=== PATIENT | male | born 1960 | race Caucasian/White ===

== ENCOUNTER → 2018-01-12 | Outpatient (CLI) | payer OTHER ==
[2018-01-12 11:32] LABS: BASO % 0 % (0-3); EOS # 0.2 x10^3/uL (0.0-0.7); EOS % 3 % (0-3); HEMATOCRIT 45.2 % (39.0-53.0); HEMOGLOBIN 15.3 g/dL (13.0-17.5); LYMPH # 2.1 x10^3/uL (1.0-4.8); LYMPH % 29 % (24-48); MEAN CORPUSCULAR HEMOGLOBIN 30 pg (25-35); MEAN CORPUSCULAR HGB CONC 34 g/dL (31-37); MEAN CORPUSCULAR VOLUME 88 fL (79-100); MONO # 0.8 x10^3/uL (0.0-1.1); MONO % 11 % (0-9); NEUT # 4.1 x10^3uL (1.8-7.7); NEUT % 57 % (31-73); PLATELET COUNT 356 x10^3/uL (140-400); RED BLOOD COUNT 5.16 x10^6/uL (4.30-5.70); RED CELL DISTRIBUTION WIDTH 13.5 % (11.5-14.5); WHITE BLOOD COUNT 7.2 x10^3/uL (4.0-11.0)
[2018-01-12 11:52] LABS: ALBUMIN/GLOBULIN RATIO 1.2 (1.0-1.7); CREATININE 1.1 mg/dL (0.7-1.3); GFR 69.5; TOTAL BILIRUBIN 0.6 mg/dL (0.2-1.0); TOTAL PROTEIN 7.4 g/dL (6.4-8.2)
[2018-01-12 11:53] LABS: CHOLESTEROL/HDL RATIO 5.3
== END | disposition home or self-care (01) ==
LOC: LAB 11:04
DX: Z00.01 Encounter for general adult medical examination with abnormal findings (principal); E34.9 Endocrine disorder, unspecified
CPT/HCPCS: 80053; 80061; 84443; 85025

== ENCOUNTER → 2018-12-21 | Outpatient (CLI) | payer OTHER ==
[2018-12-21 10:44] LABS: BASO % 0 % (0-3); EOS # 0.2 x10^3/uL (0.0-0.7); EOS % 3 % (0-3); HEMATOCRIT 43.7 % (39.0-53.0); HEMOGLOBIN 14.9 g/dL (13.0-17.5); LYMPH # 1.7 x10^3/uL (1.0-4.8); LYMPH % 23 % (24-48); MEAN CORPUSCULAR HEMOGLOBIN 30 pg (25-35); MEAN CORPUSCULAR HGB CONC 34 g/dL (31-37); MEAN CORPUSCULAR VOLUME 87 fL (79-100); MONO # 0.7 x10^3/uL (0.0-1.1); MONO % 9 % (0-9); NEUT # 4.8 x10^3/uL (1.8-7.7); NEUT % 65 % (31-73); PLATELET COUNT 312 x10^3/uL (140-400); RED BLOOD COUNT 5.02 x10^6/uL (4.30-5.70); RED CELL DISTRIBUTION WIDTH 13.5 % (11.5-14.5); WHITE BLOOD COUNT 7.4 x10^3/uL (4.0-11.0)
[2018-12-21 10:57] LABS: ALBUMIN 3.6 g/dL (3.4-5.0); CALCIUM 8.7 mg/dL (8.5-10.1); CREATININE 1.2 mg/dL (0.7-1.3); GFR 62.6; POTASSIUM 3.8 mmol/L (3.5-5.1); TOTAL BILIRUBIN 0.8 mg/dL (0.2-1.0); TOTAL PROTEIN 7.2 g/dL (6.4-8.2)
[2018-12-21 11:08] LABS: CHOLESTEROL/HDL RATIO 4.1
[2018-12-22 00:07] LABS: HEMOGLOBIN A1C 5.6 % (4.8-5.6)
== END | disposition home or self-care (01) ==
LOC: LAB 10:11
PROVIDERS: ATTEND Nurse Practitioner Family
DX: Z13.1 Encounter for screening for diabetes mellitus (principal); I10 Essential (primary) hypertension; E78.5 Hyperlipidemia, unspecified
CPT/HCPCS: 36415; 80053; 80061; 83036; 84443; 85025

== ENCOUNTER → 2019-03-25 | Outpatient (CLI) | payer OTHER ==
[2019-03-25 09:04] LABS: CALCIUM 8.9 mg/dL (8.5-10.1); CREATININE 1.2 mg/dL (0.7-1.3); GFR 62.6; MAGNESIUM 1.9 mg/dL (1.8-2.4)
[2019-03-25 23:11] LABS: HEMOGLOBIN A1C 5.6 % (4.8-5.6)
== END | disposition home or self-care (01) ==
LOC: LAB 08:38
PROVIDERS: ATTEND Nurse Practitioner Family
DX: R73.01 Impaired fasting glucose (principal); R25.3 Fasciculation
CPT/HCPCS: 36415; 80048; 83036; 83735

== ENCOUNTER → 2019-05-09 | Outpatient (CLI) | payer OTHER ==
--- NOTE | 2019-05-09 16:38 | RAD ---
LUMBAR SPINE WO CONTRAST Date: 05/09/2019 2:45 PM Indication: Low back pain with right greater than left lower extremity radiculopathy Comparison: None. Technique: Multi-planar multi-weighted magnetic resonance imaging of the lumbar spine was performed without intravenous contrast using the standard lumbar spine protocol. FINDINGS: The lumbar spine is normally aligned. No acute fracture. Mild multilevel degenerative disc desiccation and disc height loss. Nonspecific heterogeneously T1 hypointense marrow signal, which can be seen with smoking, anemia, or obesity. The conus terminates at a normal level. No abnormal signal is seen within the visualized distal spinal cord. No clumping of intrathecal nerve roots. No soft tissue abnormality in the visualized abdomen or pelvis. T12-L1: No disc bulge. No facet arthropathy. No significant spinal stenosis or neural foraminal narrowing. L1-L2: Disc bulge. Mild facet arthropathy. No significant spinal stenosis or neural foraminal narrowing. L2-L3: Disc bulge. Mild facet arthropathy. No spinal stenosis. Mild right lateral recess narrowing. Mild to moderate right and mild left neural foraminal narrowing. L3-L4: Disc bulge. Mild facet arthropathy. Mild spinal stenosis and lateral recess narrowing. Moderate right and mild left neural foraminal narrowing. L4-L5: Disc bulge. Mild to moderate facet arthropathy. Mild to moderate spinal stenosis and lateral recess narrowing. Mild to moderate left and moderate right neural foraminal narrowing. L5-S1: Disc bulge. Mild facet arthropathy. No significant spinal stenosis or neural foraminal narrowing. IMPRESSION: Mild to moderate lumbar spondylosis, detailed level by level above. Electronically signed by: Andrea Nuñez MD (05/09/2019 4:35 PM) [facility]
== END | disposition home or self-care (01) ==
LOC: MRI 14:48
PROVIDERS: ATTEND Family Medicine
DX: M47.26 Other spondylosis with radiculopathy, lumbar region (principal); M51.16 Intervertebral disc disorders with radiculopathy, lumbar region; M12.88 Other specific arthropathies, not elsewhere classified, other specified site; M48.061 Spinal stenosis, lumbar region without neurogenic claudication; M51.27 Other intervertebral disc displacement, lumbosacral region
CPT/HCPCS: 72148

== ENCOUNTER → 2019-08-18 | Outpatient (CLI) | payer OTHER ==
[2019-08-18 13:10] LABS: BASO % 1 % (0-3); EOS # 0.1 x10^3/uL (0.0-0.7); EOS % 2 % (0-3); HEMATOCRIT 47.4 % (39.0-53.0); HEMOGLOBIN 15.9 g/dL (13.0-17.5); LYMPH % 27 % (24-48); MEAN CORPUSCULAR HEMOGLOBIN 28 pg (25-35); MEAN CORPUSCULAR HGB CONC 34 g/dL (31-37); MEAN CORPUSCULAR VOLUME 84 fL (79-100); MONO # 0.7 x10^3/uL (0.0-1.1); MONO % 10 % (0-9); NEUT # 4.4 x10^3/uL (1.8-7.7); NEUT % 61 % (31-73); PLATELET COUNT 386 x10^3/uL (140-400); RED BLOOD COUNT 5.64 x10^6/uL (4.30-5.70); RED CELL DISTRIBUTION WIDTH 14.8 % (11.5-14.5); WHITE BLOOD COUNT 7.3 x10^3/uL (4.0-11.0)
[2019-08-18 13:38] LABS: ALBUMIN 4.1 g/dL (3.4-5.0); ALBUMIN/GLOBULIN RATIO 1.4 (1.0-1.7); CALCIUM 9.1 mg/dL (8.5-10.1); POTASSIUM 4.3 mmol/L (3.5-5.1); TOTAL BILIRUBIN 0.6 mg/dL (0.2-1.0); TOTAL PROTEIN 7.1 g/dL (6.4-8.2)
[2019-08-18 13:56] LABS: CHOLESTEROL/HDL RATIO 4.7
== END | disposition home or self-care (01) ==
LOC: LAB 12:41
PROVIDERS: ATTEND Nurse Practitioner Family
DX: Z12.5 Encounter for screening for malignant neoplasm of prostate (principal); Z12.11 Encounter for screening for malignant neoplasm of colon; I10 Essential (primary) hypertension; E78.2 Mixed hyperlipidemia; N40.0 Benign prostatic hyperplasia without lower urinary tract symptoms
CPT/HCPCS: 36415; 80053; 80061; 85025; G0103

== ENCOUNTER → 2020-04-17 | Outpatient (CLI) | payer OTHER ==
[~2020-04-17] MED LIST: ALBU2.5V8 IH; ATEN25TA PO; BUPR150T15 PO; FENO134C PO; IOHEXOL 180 MG/ML 10 ML VIAL. ONE; LOSA1TAB25 PO; MULT-245 PO; TAMS0.4C97 PO; ZOLP10TA PO; methylPREDNISolone ACETATE 40 MG/ML VIAL. ONE; methylPREDNISolone ACETATE 80 MG/ML VIAL. ONE
--- NOTE | 2020-04-17 15:24 | PDOC1 ---
INITIAL PAIN CONSULT DATE OF SERVICE: DOS: DATE: 04/17/20 TIME: 15:16 CHIEF COMPLAINT: Chief Complaint: Low back and right greater than left lower extremity pain HISTORY OF PRESENT ILLNESS: [id number] male presents with history of pain low back right greater left lower extremity worse over the past 2 months are present for about a year or so. 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 Patient reports the pain is increasing with work activities later during the day and has been very active better in the morning better with sitting but is waking her from sleep about 2-3 times at night does affect his bowel bladder control but no incontinence affects his ability to walk fairly significantly, where he must sometimes look to see where his foot is to make sure he can feel it. Patient has tried chiropractic treatment which has been helpful but only limited to also try gabapentin daily aspirin helps more as does Motrin. Patient reports a disability rating 0-10 10 being the worst is a 9 with him home responsibilities recreation 10 with occupation 5 social activity 8 with sexual behavior and self-care and 10 with life support activity especially sleeping. Patient have MRI scan which is dated May 2019 showing multilevel degenerative disc bulges with facet arthropathy L3-4 L4-5 and L5-S1 no significant L4-5 with mild to moderate spinal stenosis and lateral recess narrowing mild to moderate left and moderate right neuroforaminal narrowing moderate right and mild left neuroforaminal narrowing at L3-4 as well. Patient ports no loss of motor function but significant fatigability with activity. PAST MEDICAL HISTORY: PMH: Hearing loss, hypertension PREVIOUS SURGERIES: Past Surgical Hx: No previous surgeries CURRENT MEDICATIONS: Current Meds: Active Scripts Medications Dose Route/Sig Max Daily Dose Days Date Category Multi Vitamin Daily (Multivitamin) 1 Each Tablet 1 Tab PO DAILY 30 04/17/20 Reported Flomax (Tamsulosin Hcl) 0.4 Mg Cap.er.24h 1 Cap PO DAILY 04/17/20 Reported Losartan-Hctz 100-12.5 Mg Tab (Losartan/Hydrochlorothiazide) 1 Each Tablet 1 Tab PO DAILY 04/17/20 Reported Wellbutrin Xl (Bupropion Hcl) 150 Mg Tab.er.24h 1 Tab PO DAILY 04/17/20 Reported Proair Hfa (Albuterol Sulfate) 8.5 Gm Hfa.aer.ad 2 Puff IH PRN Q4-6HRS PRN 21 04/17/20 Reported Ambien (Zolpidem Tartrate) 10 Mg Tablet 10 Mg PO PRN QHS PRN 04/17/20 Reported Atenolol 25 Mg Tablet Unknown Dose PO DAILY 04/17/20 Reported Fenofibrate (Fenofibrate,Micronized) 134 Mg Capsule Unknown Dose PO DAILY 04/17/20 Reported ALLERGIES; Allergies: Coded Allergies: No Known Drug Allergies (Unverified , 04/17/20) FAMILY HISTORY: Family Hx: Coronary artery disease, hypertension SOCIAL HISTORY: Social Hx: Patient does not drink alcohol does not smoke not use any illegal illicit recreational drugs is lives with his spouse has no children living at home lives locally in [place], [place] and 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 Extraocular movements are intact and symmetrical. Oral cavity: Mucous membranes moist and pink. Dentition is intact. NECK: Shows anterior throat supple without palpable lymphadenopathy noted. Swallow reflex symmetrical. CHEST: Shows normal on inspection. Breath sounds are clear bilaterally, no rales rhonchi wheezes auscultated. HEART: Shows S1, S2 clear. No murmurs auscultated. ABDOMEN: Soft, nontender, nondistended. No palpable organomegaly is noted. No rebound or guarding demonstrated. BACK: Shows spine grossly in the midline. Normal-appearing cervical lordotic curvature. There is slightly increased thoracic kyphosis, some minor flattening of the lumbar lordotic curvature. Lumbar paraspinous muscles show symmetrical on inspection, on palpation shows some moderate tenderness diffusely throughout the upper, middle and lower distribution of the paraspinous muscles bilaterally and also into the lower thoracic paraspinous musculature, firm, but without specific trigger points, without radiation of pain. The patient has good rot ational motion of the lumbar spine, both laterally as well as extension and flexion without significant difficulty. No tenderness over the spinous processes, sacrum or sacroiliac regions. EXTREMITIES: Lower extremities show deep tendon reflexes 2+ in the patellar and tendo calcaneus tendons. Motor exam is 5 on a scale of 5 with right dorsiflexion, extension, quadriceps and hamstring flexion and 5/5 on the left. Peripheral pulses are 1+ posterior tibial. No peripheral edema is noted bilaterally. Lower extremities are warm and dry to touch, equal in color and appearance. Straight leg raise noted to be negative bilaterally. Gaenslen's and Chetan's maneuvers are noted bilaterally as well. The patient is able to stand, stand on his toes without significant difficulty or loss of balance walks with a normal-appearing gait is not appear to favor the right or left lower extremity significantly does not use any assistive devices to ambulate. SKIN: Shows warm and dry, good turgor. No edema. No sores, rashes or bruising throughout. IMPRESSION: Impression: 60-year-old male with long history of low back lower extremity pain worse over the last 2 months with right greater than left radicular pain MRI scan lumbar spine as noted Hypertension Options were discussed with the patient including conservative medical management physical therapies interventional techniques. He like to pursue interventional techniques. We discussed a lumbar epidural steroid injection using description as well as anatomical models to describe the procedure. Risks were discussed including but not limited to: Bleeding, infection, possibility of epidural hematoma and subsequent neurological compromise, dural puncture, headaches, spinal cord and/or nerve damage, side effects of steroid medication, and poor results regarding pain control. Patient understands wished to proceed. Patient will return to the clinic in approximate 2 weeks for follow-up was counseled as to return appointment activity level, and side effects to be aware of. Procedure is lumbar epidural steroid injection under local anesthetic using sterile prep and drape at the L4-5 level using C-arm fluoroscopic guidance in both AP and lateral views medications injected is 120 mg Depo-Medrol + 10 mL p reservative-free normal saline and 2 mL contrast- condition at discharge is stable patient tolerated procedure well had no complications. TARIQ TYLER MD Apr 17, 2020 15:23
== END | disposition home or self-care (01) ==
LOC: PNCL 13:15
PROVIDERS: ATTEND Anesthesiology
DX: M54.5 Low back pain (principal); M79.605 Pain in left leg; I10 Essential (primary) hypertension; Z79.899 Other long term (current) drug therapy; Z82.49 Family history of ischemic heart disease and other diseases of the circulatory system
CPT/HCPCS: 62323; J1030; J1040; Q9965

== ENCOUNTER → 2020-07-10 | Outpatient (CLI) | payer OTHER ==
[~2020-07-10] MED LIST changes: -IOHEXOL 180 MG/ML 10 ML VIAL. ONE
--- NOTE | 2020-07-10 10:07 | PDOC4 ---
PROCEDURE Procedure Patient was consented for lumbar epidural steroid injection. Risks were dis cussed including but not limited to: Bleeding, infection, possibility of epidural hematoma and subsequent neurological compromise, dural puncture, headaches, spinal cord and/or nerve damage, side effects of steroid medication, and poor results regarding pain control. Patient understands and wished to proceed. Procedure is lumbar epidural steroid injection under local anesthetic using sterile prep and drape at the L4-5 level using C-arm fluoroscopic guidance in both AP and lateral views medications injected is 120 mg Depo-Medrol + 10 mL preservative-free normal saline and 2 mL contrast- condition at discharge is stable patient tolerated procedure well had no complications. TARIQ TYLER MD Jul 10, 2020 10:07
--- NOTE | 2020-07-10 10:07 | PDOC ---
Progress Note - Pain Clinic Date of Service: DOS: DATE: 07/10/20 TIME: 10:04 Diagnosis: Dx: Lumbar radiculopathy with lumbar degenerative disc disease and lumbar spinal stenosis History or Present Illness: HPI: 60-year-old male returns follow-up status post lumbar epidural steroid traction x1. Last seen April 17, 2020. Patient did very well with about 100% improvement for the first 2 months patient reports pain is returning now over the past few weeks in the low back and bilateral lower extremities right greater than left. Patient reports some tingling and numbness in the right foot and leg as well with walking and standing for prolonged periods but prior to this was doing much better increase distance walking doing household activities work activities try with greater ease and comfort sleeping much better at night patient reports the pain still does not awaken her from sleep. Patient rates hi s pain a 7 on scale 10 is worst over the past week 7 on average for its least and is a 6 today patient reports no new motor or sensory deficits no new bowel or bladder incontinence or other complaints. Patient describes the pain as tingling in the leg aching and burning in the back some stabbing pain as well which began to become more noticeable but not back to baseline. Physical Exam: VS: Blood pressure is 126/80 pulse is 87 respirations 16 temperature is 98.5 F height is 5 feet 6 inches weight is 188 pounds PE: PHYSICAL EXAMINATION: GENERAL: The patient is awake, alert, oriented, appropriate, very pleasant demeanor HEENT: Shows normocephalic, atraumatic. Extraocular movements are intact and symmetrical. Oral cavity: Mucous membranes moist and pink. NECK: Shows anterior throat supple without palpable lymphadenopathy noted. Swallow reflex symmetrical. CHEST: Shows normal on inspection. Breath sounds are clear bilaterally. HEART: Shows S1, S2 clear. No murmurs auscultated. ABDOMEN: Soft, nontender, nondistended. No palpable organomegaly is noted. No rebound or guarding demonstrated. BACK: Shows spine grossly in the midline. Normal-appearing cervical lordotic curvature. There is slightly increased thoracic kyphosis, some minor flattening of the lumbar lordotic curvature. Lumbar paraspinous muscles show symmetrical on inspection, on palpation shows some moderate tenderness diffusely throughout the upper, middle and lower distribution of the paraspinous muscles without specific trigger points, without radiation of pain. The patient has good rotational motion of the lumbar spine, both laterally as well as extension and flexion without significant difficulty. EXTREMITIES: Lower extremities show deep tendon reflexes 2+ in the patellar and tendo calcaneus tendons. Motor exam is 5 on a scale of 5 with right dorsiflexion, extension, quadriceps and hamstring flexion and 5/5 on the left. Peripheral pulses are 1+ posterior tibial. No peripheral edema is noted bilaterally. Lower extremities are warm and dry to touch, equal in color and appearance. SKIN: Shows warm and dry, good turgor. No edema. No sores, rashes or bruising throughout. Procedure: Procedure: Options were discussed with the patient. Patient chart reviews his current medication regimen updated current review of systems updated today as well. We will proceed with a lumbar epidural steroid injection today with fluoroscopic guidance as a second in the series. Risks were discussed including but not limited to: Bleeding, infection, possibility of epidural hematoma and subsequent neurological compromise, dural puncture, headaches, spinal cord and/or nerve damage, side effects of steroid medication, and poor results regarding pain control. Patient understands and wished to proceed. Patient will return to clinic in approximate 2 weeks for follow-up or as necessary. Patient was counseled as return appointment activity level and side effects to be aware of. Medication Injected: Med Injected: Procedure is lumbar epidural steroid injection under local anesthetic using sterile prep and drape at the L4-5 level using C-arm fluoroscopic guidance in both AP and lateral views medications injected is 120 mg Depo-Medrol + 10 mL preservative-free normal saline and 2 mL contrast- condition at discharge is stable patient tolerated procedure well had no complications. Condition at Discharge: Condition at Discharge: Condition at discharge stable, patient alert procedure well and had no complications. TARIQ TYLER MD Jul 10, 2020 10:07
== END | disposition home or self-care (01) ==
LOC: PNCL 09:18
PROVIDERS: ATTEND Anesthesiology
DX: M51.16 Intervertebral disc disorders with radiculopathy, lumbar region (principal); M48.061 Spinal stenosis, lumbar region without neurogenic claudication; Z79.899 Other long term (current) drug therapy
CPT/HCPCS: 62323; J1030; J1040

== ENCOUNTER → 2020-10-24 | Outpatient (CLI) | payer OTHER ==
[~2020-10-24] MED LIST changes: -methylPREDNISolone ACETATE 40 MG/ML VIAL. ONE; -methylPREDNISolone ACETATE 80 MG/ML VIAL. ONE
[2020-10-24 10:32] LABS: BASO % 0 % (0-3); EOS # 0.2 x10^3/uL (0.0-0.7); EOS % 3 % (0-3); HEMATOCRIT 45.3 % (39.0-53.0); HEMOGLOBIN 15.4 g/dL (13.0-17.5); LYMPH # 1.9 x10^3/uL (1.0-4.8); LYMPH % 28 % (24-48); MEAN CORPUSCULAR HEMOGLOBIN 29 pg (25-35); MEAN CORPUSCULAR HGB CONC 34 g/dL (31-37); MEAN CORPUSCULAR VOLUME 86 fL (79-100); MONO # 0.7 x10^3/uL (0.0-1.1); MONO % 11 % (0-9); NEUT # 3.9 x10^3/uL (1.8-7.7); NEUT % 58 % (31-73); PLATELET COUNT 348 x10^3/uL (140-400); RED BLOOD COUNT 5.26 x10^6/uL (4.30-5.70); RED CELL DISTRIBUTION WIDTH 13.3 % (11.5-14.5); WHITE BLOOD COUNT 6.8 x10^3/uL (4.0-11.0)
[2020-10-24 12:41] LABS: CALCIUM 8.9 mg/dL (8.5-10.1); GFR 76.7; POTASSIUM 4.2 mmol/L (3.5-5.1)
== END ==
LOC: LAB 09:57
PROVIDERS: ATTEND Nurse Practitioner Family
DX: Z12.5 Encounter for screening for malignant neoplasm of prostate (principal); E78.2 Mixed hyperlipidemia
CPT/HCPCS: 80048; 80061; 84402; 84403; 84443; 85025; G0103

== ENCOUNTER → 2021-05-10 | Outpatient (CLI) | payer OTHER ==
[2021-05-16 11:14] LABS: TESTOSTERONE FREE 15.48 ng/dL (5.00-21.00)
== END ==
LOC: LAB 12:14
PROVIDERS: ATTEND Nurse Practitioner Family
DX: E34.9 Endocrine disorder, unspecified (principal)
CPT/HCPCS: 36415; 84402; 84403

== ENCOUNTER → 2021-06-24 | Outpatient (CLI) | payer OTHER ==
[~2021-06-24] MED LIST changes: +IOHEXOL 180 MG/ML 10 ML VIAL. ONE; +methylPREDNISolone ACETATE 80 MG/ML VIAL. ONE
--- NOTE | 2021-06-24 11:08 | PDOC ---
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 with increased pain in the back and the lower extremities right greater than left in the posterior gluteus lateral thigh anterior thigh medial thigh into the foot especially between the first and second toes on the right foot patient reports that he has some weakness in the right leg and feels unstable over the past month or 2 with his right leg since the pain is increased patient reports tingling and constant in the low back and the right leg aching and dull can be shooting and stabbing in the leg as well patient reports an 8 on scale 10 is worst 7 on average 5 its least is a 7 today patient reports no bowel or bladder incontinence better with sitting or laying down much worse with standing walking changing positions initially doing much better with all activities household activities work activities distance walking doing traveling with greater ease and sleeping much better he still sleeps fairly well. Patient reports no bowel or bladder incontinence no motor deficits has been taking Motrin sometimes up to 6-8 times a day as well as baby aspirin on top of this. We discussed his in detail and will prescribe new medication of meloxicam 15 mg once daily to substitute for the Motrin and aspirin. Patient was given instructions well side effects beware with the new medication. Physical Exam: VS: Blood pressure is 144/82 pulse 74 respirations 18 temperature 98.2 F height 5 feet 6 inches weight is 178 pounds. PE: PHYSICAL EXAMINATION: GENERAL: The patient is awake, alert, oriented, appropriate, very pleasant in demeanor HEENT: Shows normocephalic, atraumatic. Extraocular movements are intact and symmetrical. Oral cavity: Mucous membranes moist and pink. Dentition is intact. NECK: Shows anterior throat supple without palpable lymphadenopathy noted. Swallow reflex symmetrical. CHEST: Shows normal on inspection. Breath sounds are clear bilaterally, distant but no rales or rhonchi. HEART: Shows S1, S2 clear. No murmurs auscultated. ABDOMEN: Soft, nontender, nondistended. No palpable organomegaly is noted. BACK: Shows spine grossly in the midline. Normal-appearing cervical lordotic curvature. There is slightly increased thoracic kyphosis, some minor flattening of the lumbar lordotic curvature. Lumbar paraspinous muscles show symmetrical on inspection, on palpation shows some moderate tenderness diffusely throughout the upper, middle and lower distribution of the paraspinous muscles without specific trigger points, without radiation of pain. The patient has good rotational motion of the lumbar spine, both laterally as well as extension and flexion without significant difficulty. No tenderness over the spinous processes, sacrum or sacroiliac regions. EXTREMITIES: Lower extremities show deep tendon reflexes 2+ in the patellar and tendo calcaneus tendons. Motor exam is 4 on a scale of 5 with right dorsiflexion, extension, quadriceps and hamstring flexion and 5/5 on the left. Peripheral pulses are 1+ posterior tibial. No peripheral edema is noted bilaterally. Lower extremities are warm and dry to touch, equal in color and appearance. SKIN: Shows warm and dry, good turgor. No edema. No sores, rashes or bruising throughout. Procedure: Procedure: Options discussed with the patient. Patient's old chart was used his current medication regimen updated current review of systems updated today as well. We will proceed with a lumbar epidural steroid injection today with fluoroscopic guidance. Risks were discussed including but not limited to: Bleeding, infection, possibility of epidural hematoma and subsequent neurological compromise, dural puncture, headaches, spinal cord and/or nerve damage, side effects of steroid medication, and poor results regarding pain control. Patient understands and wished to proceed. Patient will return to the clinic in approximately 2 weeks for follow-up, was counseled as to return appointment, activity level, and side effect to be aware of. Medication Injected: Med Injected: Procedure is lumbar epidural steroid injection under local anesthetic using sterile prep and drape at the L4-5 level using C-arm fluoroscopic guidance in both AP and lateral views medications injected is 120 mg Depo-Medrol +10mL preservative-free normal saline and 2 mL contrast- condition at discharge is stable patient tolerated procedure well had no complications. Condition at Discharge: Condition at Discharge: Condition at discharge is stable, patient tolerated the procedure well and had no complications. TARIQ TYLER MD Jun 24, 2021 11:08
--- NOTE | 2021-06-24 11:09 | PDOC4 ---
Procedure Note: ICD 10 Code: ICD 10 Code: M54.16 M51.36 M4 8.06 Procedure Note: Patient was consented for lumbar epidural steroid injection with fluoroscopic guidance. Risks were discussed including but not limited to: Bleeding, infection, possibility of epidural hematoma and subsequent neurological compromise, dural puncture, headaches, spinal cord and/or nerve damage, side effects of steroid medication, and poor results regarding pain control. Patient understands and wished to proceed. Procedure is lumbar epidural steroid injection under local anesthetic using jamie rile prep and drape at the L4-5 level using C-arm fluoroscopic guidance in both AP and lateral views medications injected is 120 mg Depo-Medrol +10mL preservative-free normal saline and 2 mL contrast- condition at discharge is stable patient tolerated procedure well had no complications. TARIQ TYLER MD Jun 24, 2021 11:09
== END | disposition home or self-care (01) ==
LOC: PNCL 10:17
PROVIDERS: ATTEND Anesthesiology
DX: M51.16 Intervertebral disc disorders with radiculopathy, lumbar region (principal); M48.061 Spinal stenosis, lumbar region without neurogenic claudication; Z79.899 Other long term (current) drug therapy
CPT/HCPCS: 62323; J1040; Q9965

== ENCOUNTER → 2021-10-10 | Outpatient (CLI) | payer OTHER ==
[~2021-10-10] MED LIST changes: +DEXAMETHASONE PRES.FREE 10 MG/ML VIAL. ONE; -FENO134C PO; +FENO134C22 PO; +MELO15TA23 PO; -methylPREDNISolone ACETATE 80 MG/ML VIAL. ONE
--- NOTE | 2021-10-10 09:32 | PDOC ---
Progress Note - Pain Clinic Date of Service: DOS: DATE: 10/10/21 TIME: 09:29 Diagnosis: Dx: Lumbar radiculopathy with lumbar degenerative disease and lumbar spinal stenosis History or Present Illness: HPI: 61-year-old male returns for follow-up status post lumbar epidural steroid injection last seen June 24, 2021. Patient did very well near 100% improvement for about 3 months patient reports pain began to return of 2 to 3 weeks ago in the low back and left lower extremity greater than right lower extremity previously was just the right side but now is on the left side as well as in the posterior gluteus posterior thigh lateral thigh anterior thigh medial thigh medial lower legs into the calves bilaterally as well. Patient reports no loss of motor function no bowel or bladder incontinence but now has pain on the left side which is new for him. Patient reports is constant aching and shooting in the back and leg radiating cramping rated as 8 on scale 10 is worse over the past week 7 on average 7 its least and is a 7 today. Patient reports no bowel or bladder incontinence. Physical Exam: VS: Blood pressure is 145/86 pulse 70 respirations 18 temperature 97.9 F weight is 173 pounds. PE: PHYSICAL EXAMINATION: GENERAL: The patient is awake, alert, oriented, appropriate, very pleasant in demeanor HEENT: Shows normocephalic, atraumatic. Extraocular movements are intact and symmetrical. Oral cavity: Mucous membranes moist and pink. Dentition is intact. NECK: Shows anterior throat supple without palpable lymphadenopathy noted. Swallow reflex symmetrical. CHEST: Shows normal on inspection. Breath sounds are clear bilaterally, no rales or rhonchi auscultated. HEART: Shows S1, S2 clear. No murmurs auscultated. ABDOMEN: Soft, nontender, nondistended. No palpable organomegaly is noted. BACK: Shows spine grossly in the midline. Normal-appearing cervical lordotic curvature. There is slightly increased thoracic kyphosis, some minor flattening of the lumbar lordotic curvature. Lumbar paraspinous muscles show symmetrical on inspection, on palpation shows some moderate tenderness diffusely throughout the upper, middle and lower distribution of the paraspinous muscles, but without specific trigger points, without radiation of pain. The patient has good rotational motion of the lumbar spine, both laterally as well as extension and flexion without significant difficulty. EXTREMITIES: Lower extremities show deep tendon reflexes 2+ in the patellar and tendo calcaneus tendons. Motor exam is 4 on a scale of 5 with right dorsiflexion, extension, quadriceps and hamstring flexion and 5/5 on the left. Peripheral pulses are 1+ posterior tibial. No peripheral edema is noted bilaterally. Lower extremities are warm and dry. SKIN: Shows warm and dry, good turgor. No edema. No sores, rashes or bruising throughout. Procedure: Procedure: Options discussed with the patient. Patient's old chart was reviewed his current medication regimen updated current review of systems updated today as well. We will proceed with a lumbar epidural steroid injection today with fluoroscopic guidance. Risks were discussed including but not limited to: Bleeding, infection, possibility of epidural hematoma and subsequent neurologi krish compromise, dural puncture, headaches, spinal cord and/or nerve damage, side effects of steroid medication, and poor results regarding pain control. Patient understands and wished to proceed. Patient will return to clinic in approximate 2 weeks for follow-up, was counseled as to return appointment, activity level, and side effects to be aware of. Medication Injected: Med Injected: Procedure is lumbar epidural steroid injection under local anesthetic using sterile prep and drape at the L4-5 level using C-arm fluoroscopic guidance in both AP and lateral views medications injected is 20 mg dexamethasone +10mL preservative-free normal saline and 2 mL contrast- condition at discharge is stable patient tolerated procedure well had no complications. Condition at Discharge: Condition at Discharge: Condition at discharge is stable, patient tolerated the procedure well and had no complications. TARIQ TYLER MD October 10, 2021 09:32
--- NOTE | 2021-10-10 09:32 | PDOC4 ---
Procedure Note: ICD 10 Code: ICD 10 Code: M54.16 M51.36 M48.06 Procedure Note: Patient was consented for lumbar epidural steroid injection with fluoroscopic guidance. Risks were discussed including but not limited to: Bleeding, infection, possibility of epidural hematoma and subsequent neurological compromise, dural puncture, headaches, spinal cord and/or nerve damage, side effects of steroid medication, and poor results regarding pain control. Patient understands and wished to proceed. Procedure is lumbar epidural steroid injection under local anesthetic using ster ile prep and drape at the L4-5 level using C-arm fluoroscopic guidance in both AP and lateral views medications injected is 20 mg dexamethasone +10mL preservative-free normal saline and 2 mL contrast- condition at discharge is stable patient tolerated procedure well had no complications. TARIQ TYLER MD October 10, 2021 09:32
== END | disposition home or self-care (01) ==
LOC: PNCL 08:38
PROVIDERS: ATTEND Anesthesiology
DX: M51.16 Intervertebral disc disorders with radiculopathy, lumbar region (principal); M48.061 Spinal stenosis, lumbar region without neurogenic claudication; Z79.899 Other long term (current) drug therapy
CPT/HCPCS: 62323; J1100; Q9965